=== PATIENT | male | born 1945 | race Caucasian/White ===

== ENCOUNTER → 2018-05-02 | Outpatient (CLI) | payer BC ==
[~2018-05-02] MED LIST: HYDR25TA9 PO; LISI-334 PO; METO-269 PO; NIAC1000 PO; OMEP20TA8 PO
--- NOTE | 2018-05-02 13:05 | RAD ---
Abdominal ultrasound, 05/02/2018: HISTORY: Abdominal pain and back pain The gallbladder is surgically absent. The liver measures 18.6 cm in craniocaudad extent at the level the right lobe. No hepatic mass or bile duct dilatation is seen. 2 simple cysts are evident in the right kidney. The largest of these lies inferiorly and measures 3.1 cm. The kidneys show no evidence of obstruction. The spleen is of normal size. Limited views of the pancreatic body were unremarkable. Other portions of the pancreas were obscured by overlying bowel. The upper abdominal aorta is unremarkable. The distal abdominal aorta was obscured by bowel. Limited views of the inferior vena cava show no abnormality. No free fluid is evident in the abdomen. IMPRESSION: 1. Status post cholecystectomy. 2. Borderline hepatomegaly. 3. Small right renal cysts. 4. Obscuration of much of the pancreas and central retroperitoneum by overlying bowel. Electronically signed by: Khari Meza MD (05/02/2018 1:01 PM) [facility]
== END | disposition home or self-care (01) ==
LOC: US 07:55
PROVIDERS: ATTEND Internal Medicine Cardiovascular Disease
DX: N28.1 Cyst of kidney, acquired (principal); Z90.49 Acquired absence of other specified parts of digestive tract
CPT/HCPCS: 76700

== ENCOUNTER → 2022-02-11 | Outpatient (CLI) | payer MEDICARE, OTHER ==
[~2022-02-11] MED LIST changes: +HYDR-2145 PO; -HYDR25TA9 PO; -LISI-334 PO; +LISI20TA18 PO; -OMEP20TA8 PO; +OMEP20TA91 PO
--- NOTE | 2022-02-11 13:06 | CARD ---
MR#: [id number] Date of Study: 02/11/2022 Ordering Physician: ELLI CONTRERAS, Referring Physician: ELLI CONTRERAS, Tech: Eva Zee [facility] APPROVED REPORT EXAM: Two-dimensional and M-mode echocardiogram with Doppler and color Doppler. Other Information Quality : GoodHR: 45bpm Rhythm : Atrial FlutterNSR INDICATION Cardiac Disease: CAD Surgery/Intervention CABD DIMENSIONS RVDd2.6 (2.9-3.5cm)Left Atrium(2D)3.6 (1.6-4.0cm) IVSd0.7 (0.7-1.1cm)Aortic Root(2D)3.3 (2.0-3.7cm) LVDd5.3 (3.9-5.9cm)LVOT Diameter2.1 (1.8-2.4cm) PWd0.8 (0.7-1.1cm)LVDs3.0 (2.5-4.0cm) FS (%) 43.4 %SV101.0 ml LVEF(%)74.1 (>50%) Aortic Valve AoV Peak Solis.223.6cm/sAoV VTI45.7cm AO Peak GR.20.0mmHgLVOT Peak Solis.70.7cm/s AO Mean GR.9mmHgAVA (VMAX)1.06cm2 Mitral Valve MV E Asomhxxs88.0cm/sMV DECEL EIND304ho MV A Lzlmvjnp67.3cm/sE/A Ratio1.1 Pulmonary Valve PV Peak Haxcejmh704.6cm/s Pulmonary Vein S1 Yqjyuaqe95.8cm/sD2 Xhdowzuc63.0cm/s PVa [id number] LEFT VENTRICLE The left ventricle is normal size. There is normal left ventricular wall thickness. The left ventricu lar systolic function normal. The Ejection Fraction is 60-65%. No regional wall motion abnormalities noted. Transmitral Doppler flow pattern is Grade II-pseudonormal filling dynamics. No left ventricle thrombus noted on this study. There is no ventricular septal defect visualized. There is no left vent ricular aneurysm. There is no mass noted in the left ventricle. RIGHT VENTRICLE The right ventricle is normal size. There is normal right ventricular wall thickness. The right ventr icular systolic function is normal. ATRIA The left atrium size is normal. The right atrium size is normal. The interatrial septum is intact wit h no evidence for an atrial septal defect or patent foramen ovale as noted on 2-D or Doppler imaging. AORTIC VALVE The aortic valve is mildly thickened. Doppler and Color Flow revealed mild aortic regurgitation. Ther e is no aortic valvular stenosis. There is no aortic valvular vegetation. MITRAL VALVE The mitral valve is normal in structure and function. There is no evidence of mitral valve prolapse. There is no mitral valve stenosis. Doppler and Color Flow revealed trace mitral regurgitation. TRICUSPID VALVE The tricuspid valve is normal in structure and function. Doppler and Color Flow revealed trace tricus pid regurgitation. There is no tricuspid valve prolapse or vegetation. There is no tricuspid valve st enosis. PULMONIC VALVE The pulmonary valve is normal in structure and function. There is no pulmonic valvular regurgitation. There is no pulmonic valvular stenosis. GREAT VESSELS The aortic root is normal in size. The ascending aorta is normal in size. The pulmonary artery is nor mal. The IVC is normal in size and collapses >50% with inspiration. PERICARDIAL EFFUSION There is no pleural effusion. There is no evidence of significant pericardial effusion. Critical Notification Critical Value: No <Conclusion> The left ventricular systolic function normal. The Ejection Fraction is 60-65%. No regional wall motion abnormalities noted. Transmitral Doppler flow pattern is Grade II-pseudonormal filling dynamics. Mild aortic regurgitation. Trace mitral regurgitation. Trace tricuspid regurgitation. There is no evidence of significant pericardial effusion. Signed by : Hilario Victoria, Electronically Approved : 02/11/2022 13:05:53
== END ==
LOC: ECHO 10:37
PROVIDERS: ATTEND Internal Medicine Cardiovascular Disease
DX: I35.1 Nonrheumatic aortic (valve) insufficiency (principal); Z95.1 Presence of aortocoronary bypass graft
CPT/HCPCS: 93306; C8929